=== PATIENT | female | born 1955 | race Caucasian/White ===

== ENCOUNTER 2020-07-20 10:24 | Emergency (ER) | payer BC, SELFPAY ==
--- NOTE | ~2020-07-20 | XR_ITS ---
EXAMINATION: XR shoulder LT min 2V EXAM DATE: 07/20/2020 12:56 INDICATION: No known recent injury provided at this time. Pain of the left shoulder. TECHNIQUE: The following left shoulder projections obtained: frontal projection with internal rotatio n, frontal projection with external rotation, Grashey, and scapular Y view (4+ views). There is no p rior study for comparison. FINDINGS: No evidence of left shoulder rotator cuff calcific tendinosis. There is mild glenohumer al and acromioclavicular primary osteoarthritis. There are no acute fractures or dislocations identif ied. There is no subcutaneous gas. The soft tissue is unremarkable. There are no radiopaque forei gn bodies. IMPRESSION: Mild left shoulder osteoarthritis. Reviewed, dictated and finalized at location B. NCE INSTRUCTOR
[2020-07-20 10:56] VITALS: BP 192/91; PULSE 84; RESP 16; TEMP 36.5; O2SAT 99
[2020-07-20] MEDS: KETOROLAC (*BKC) 60 MG/2 ML VIAL 30 MG IM (13:05)
--- NOTE | 2020-07-20 13:36 | ED.GENADULT ---
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 and believes that it may be what exacerbated the injury and pain pain radiates down the left arm denies other complaints or injuries has not taken anything for her symptoms presents in no distress pain is worse with lifting the shoulder above the level of the neck and with movement of the neck Related Data Allergies Allergy/AdvReac Type Severity Reaction Status Date / Time No Known Allergies Allergy Verified 05/14/13 09:13 Review of Systems Review of Systems: All systems reviewed & are unremarkable except as noted in HPI and below PMFSH Family History Family History (Updated 01/22/14 @ 07:13 by DOCTOR UNKNOWN) Mother Cerebrovascular accident Father Patient's father is Social History Social History Second hand tobacco smoke exposure: No Smoking end date: 05/28/94 Alcohol intake: current Exam Narrative: Exam Narrative: GENERAL: Well-appearing, well-nourished, and in no acute distress. HEAD: Normocephalic, atraumatic. EYES: PERRLA and EOMI. ENT: Nares clear, no rhinorrhea or epistaxis. Mucous membranes moist. NECK: Supple. No adenopathy or masses. CHEST: Clear to auscultation. No respiratory distress. No wheezes rales or rhonchi HEART: Regular rate and rhythm. No murmur heard. EXTREMITIES: Normal range of motion. No edema. Tenderness of the left trapezius musculature and rotator cuff musculature no other deformities or tenderness to palpation noted SKIN: Warm, dry, no rash. NEURO: No focal deficits. Alert and oriented x3. Neurovascularly intact. Cranial nerves II through XII grossly intact. Capillary refill less than 2 seconds PSYCH: Normal mood and affect. Course Course Emergency Course: Patient evaluated in the emergency department for shoulder pain will be discharged home at this time given primary care referral managed with medications and is felt appropriate for outpatient reevaluation Vital Signs Vital signs: Vital Signs Temperature 97.7 F 02/23/21 10:56 Pulse Rate 84 07/20/20 10:56 Respiratory Rate 16 07/20/20 10:56 Blood Pressure 192/91 H 07/20/20 10:56 Pulse Oximetry 99 07/20/20 10:56 Temperature 97.7 F 07/20/20 10:56 Pulse Rate 84 07/20/20 10:56 Respiratory Rate 16 07/20/20 10:56 Blood Pressure 192/91 H 07/20/20 10:56 Pulse Oximetry 99 07/20/20 10:56 Medical Decision Making MDM Narrative Medical decision making narrative: Patients injury or pain is consistent with musculoskeletal etiology. No signs of neurological or vascular compromise on exam. Compartments and tisues are soft without signs of compartment syndrome. Pain is felt appropriate for further evaluation on an outpatient basis. Vital Signs Vital Signs: Vital Signs Temperature 97.7 F 07/20/20 10:56 Pulse Rate 84 07/20/20 10:56 Respiratory Rate 16 07/20/20 10:56 Blood Pressure 192/91 H 07/20/20 10:56 Pulse Oximetry 99 07/20/20 10:56 Temperature 97.7 F 07/20/20 10:56 Pulse Rate 84 07/20/20 10:56 Respiratory Rate 16 07/20/20 10:56 Blood Pressure 192/91 H 07/20/20 10:56 Pulse Oximetry 99 07/20/20 10:56 Discharge Plan Discharge Clinical Impression: Acute pain of left shoulder Patient Disposition: Home, Self-Care Condition: Stable Instructions: Antibiotic Form, Arthralgia (ED) Additional Instructions: Follow up with your primary care doctor in 5-7 days for re-evaluation. Go to ER for worsening pain, vision changes, na
== END 2020-07-20 14:18 | disposition home or self-care (01) ==
PROVIDERS: Emergency Provider Emergency Medicine
DX: M25.512 Pain in left shoulder (principal)
CPT/HCPCS: 73030; 96372; 99283; J1885

== ENCOUNTER 2020-08-12 12:38 | Inpatient (IN) | payer BC, SELFPAY ==
[2020-08-12] VITALS (9 sets, daily range): BP systolic 149–183; BP diastolic 74–100; PULSE 74–87; RESP 15–25; TEMP 35.9–36.7; O2SAT 95–100; BMI 29.4
--- NOTE | ~2020-08-12 | CT_ITS ---
EXAMINATION: CT brain [facility] EXAM DATE: 08/12/2020 13:07 INDICATION: Speech impairment. Stroke. TECHNIQUE: Spiral CT of the head was performed without contrast. Axial, coronal and sagittal images were reviewed. The dose-length product (DLP) for this examination was 605.33 mGy-cm. The exposure w as tailored according to patient size, and iterative reconstruction (ASIR) was used as additional dos e reduction technique. There is no prior study for comparison. FINDINGS: There is no acute intraparenchymal hemorrhage. No evidence of intraparenchymal brain mass lesion. There is about 1 cm right parietal lobe hypodensity which could be an acute or subacute infar ction. There are scattered old small bilateral frontoparietal lobe infarctions There is mild to mode rate periventricular and subcortical hypodensity, nonspecific but probably related to small vessel is chemic disease. There is mild prominence of the sulci and ventricles related to cerebral atrophy. There is intracranial carotid arteriosclerosis. There are no extra-axial collections. There is no mass effect or midline shift. The orbits are unremarkable. Soft tissue is unremarkable. The visual ized sinuses and mastoid air cells are well aerated. IMPRESSION: 1. Small right parietal lobe infarction, could be acute or subacute. 2. Multiple scattered old small cortical infarctions. 3. Chronic age related findings. Reviewed, dictated and finalized at location A.
--- NOTE | ~2020-08-12 | CT_ITS ---
EXAMINATION: CTA brain carotid DATE: 08/12/2020 14:15 INDICATION: Cerebrovascular accident. TECHNIQUE: Computed tomographic angiography (CTA) of the head was performed with 100 mL Omnipaque-350 intravenous contrast. CTA of the neck was performed with intravenous contrast. Automated exposure co ntrol and iterative reconstruction technique were employed. The dose-length product was 922.96 mGy-cm . Maximum intensity projection and volume rendered 3D-reconstructions were created by the [employer] t on a separate workstation. COMPARISON: Head CT 08/12/2020 FINDINGS: HEAD CTA: There are infarcts in right parietal occipital region. There are old infarcts in the bilate ral frontal and parietal lobes. There is no intracranial hemorrhage or abnormal mass lesion. The vent ricles are normal in size. The orbits are normal. The paranasal sinuses are clear. The mastoid air ce lls are normal. The vertebral arteries are codominant. There is no significant stenosis of basilar ar clyde or the posterior cerebral arteries. There is moderate stenosis of the supraclinoid intracranial internal carotid arteries. There is total occlusion of cervical left internal carotid artery with rec onstitution in the petrous portion. There is no significant stenosis of the anterior or middle cerebr al arteries. Anterior communicating artery is normal. There is no aneurysm. The posterior communicati ng arteries are normal. NECK CTA: There is mild scarring at the lung apices. There is mild emphysema. There are no pathologic ally enlarged lymph nodes. There is plaque in proximal right internal carotid artery. There is 69% st enosis of the proximal right internal carotid artery relative to normal distal artery lumen diameter (NASCET criteria). There is total occlusion of cervical left internal carotid artery. There is mild s tenosis of the vertebral arteries. There is hypolordosis of cervical spine. Vertebral body heights ar e normal. There is mildly decreased disc height at C4-C5 and C5-C6. The following disc levels are spe cifically discussed: C2-C3: There is no uncovertebral joint osteoarthritis. There is moderate bilateral facet joint osteoa rthritis. There is no neural foraminal stenosis. There is no central canal stenosis. C3-C4: There is mild right uncovertebral joint osteoarthritis. There is no facet joint osteoarthritis . There is no neural foraminal stenosis. There is no central canal stenosis. C4-C5: There is mild bilateral uncovertebral joint osteoarthritis. There is mild left facet joint ost eoarthritis. There is mild left neural foraminal stenosis. There is mild central canal stenosis. C5-C6: There is mild bilateral uncovertebral joint osteoarthritis. There is no facet joint osteoarthr itis. There is mild bilateral neural foraminal stenosis. There is mild central canal stenosis. C6-C7: There is mild bilateral uncovertebral joint osteoarthritis. There is mild right facet joint os teoarthritis. There is no neural foraminal stenosis. There is no central canal stenosis. C7-T1: There is no uncovertebral joint osteoarthritis. There is mild bilateral facet joint osteoarthr itis. There is no neural foraminal stenosis. There is no central canal stenosis. IMPRESSION: 1. Age-indeterminant infarcts in right parietal occipital region. 2. Old infarcts in the bilateral frontal and parietal lobes. 3. 69% stenosis of the proximal right internal carotid artery relative to normal distal artery lumen diameter (NASCET criteria). 4. 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 5. Mild cervical spondylosis. Reviewed, dictated and finalized at location A.
--- NOTE | ~2020-08-12 | MR_ITS ---
EXAMINATION: MR brain/brain stem wo/w con EXAM DATE: 08/13/2020 09:01 INDICATION: Stroke. Abnormal head CT. TECHNIQUE: Magnetic resonance imaging (MRI) of the brain/brain stem obtained without contrast. Sagit nicola T1, axial diffusion, gradient echo (T2*), T1, T2, FLAIR sequences obtained. Patient was then inj ected with 15 cc intravenous Multihance contrast. Axial and coronal postcontrast T1 weighted sequence s obtained. Correlation is made to head CT, brain CTA from 08/12/2020. FINDINGS: There is small acute right parieto-occipital lobe infarction as seen on CT. There are multi ple other scattered punctate bilateral frontal and parietal lobe infarctions which could be varying a ges from acute to subacute. Punctate focus of enhancement in the posterior aspect right frontal lobe probably subacute punctate infarction. No other areas of abnormal enhancement. Recommend considering cardiac embolic source. There are multiple old small bilateral frontoparietal lobe infarctions. There is moderate microangiop athy and mild cerebral atrophy. There is abnormal signal intensity in the left internal carotid arter y, occluded extracranially but with reconstitution along the parasellar segment as seen on yesterday' s CT. There is no acute intracranial hemorrhage, brain mass, extra-axial collection or obstructive hy drocephalus. IMPRESSION: 1. Scattered small bilateral cortical infarctions ranging in age from acute to chronic. Recommend co nsidering cardiac embolic source. 2. Age-related intracranial findings. Reviewed, dictated and finalized at location A. IMPRESSION: 1. Scattered small bilateral cortical infarctions ranging in age from acute to chronic. Recommend considering cardiac embolic source. 2. Age-related intracranial findings.
--- NOTE | ~2020-08-12 | MR_ITS ---
EXAMINATION: MR cervical spine wo con EXAM DATE: 08/13/2020 09:01 INDICATION: Bilateral upper extremity weakness bilateral upper extremity weakness. TECHNIQUE: Multi-sequential, multiplanar MR images of the cervical spine were obtained without contra st. Axial T2, axial T2 MERGE sequence. Sagittal T1, T2, T2 fat saturation images also obtained. Th ere is no prior study for comparison. FINDINGS: The spinal cord signal intensity and intrinsic morphology is normal. Cervicomedullary junc tion is normal in appearance. The vertebral bodies are aligned in the AP dimension. Vertebral body an d disc heights are well-maintained. There are no suspicious marrow signal abnormalities. Paraspinal s oft tissue is unremarkable. Level by level evaluation: C2-C3: Disc does not extend beyond the endplate margin. Uncovertebral joint arthropathy: None. Facet joint arthropathy: Mild to moderate bilateral, right greater than left. Neural foraminal stenosis: No stenosis. Central canal stenosis: No stenosis. C3-C4: There is a minimal diffuse disc bulge asymmetric to the right Uncovertebral joint arthropathy: Mild right. Facet joint arthropathy: Moderate bilateral. Neural foraminal stenosis: Mild right. Central canal stenosis: No stenosis. C4-C5: There is a mild diffuse disc bulge. Uncovertebral joint arthropathy: Mild bilateral. Facet joint arthropathy: Moderate bilateral. Neural foraminal stenosis: Mild to moderate left, mild right. Central canal stenosis: Mild. C5-C6: There is a mild diffuse disc bulge. Uncovertebral joint arthropathy: Mild to moderate left, mild right. Facet joint arthropathy: Moderate. Neural foraminal stenosis: Moderate left, mild to moderate right. Central canal stenosis: Mild. C6-C7: There is a mild diffuse disc bulge. Uncovertebral joint arthropathy: Mild to moderate left, mild right. Facet joint arthropathy: Mild to moderate bilateral. Neural foraminal stenosis: Mild to moderate bilateral. Central canal stenosis: Mild. C7-T1: Disc does not extend beyond the endplate margin. Uncovertebral joint arthropathy: Mild left. Facet joint arthropathy: Mild bilateral. Neural foraminal stenosis: No stenosis. Central canal stenosis: No stenosis. IMPRESSION: 1. Mild to moderate cervical spondylosis. Reviewed, dictated and finalized at location A.
--- NOTE | ~2020-08-12 | XR_ITS ---
EXAMINATION: XR chest 1V DATE: 08/12/2020 13:11 INDICATION: Slurred speech. Cerebrovascular accident. TECHNIQUE: A single frontal view of the chest was obtained. COMPARISON: Chest 2 views 05/03/2012 FINDINGS: A calcified right lung nodule and calcified right hilar and mediastinal lymph nodes are con sistent with old granulomatous disease. There is mild scarring at the lung apices. No pleural effusio n or pneumothorax. The heart size is normal. Breast implants are noted. IMPRESSION: 1. Mild scarring at the lung apices. Reviewed, dictated and finalized at location A.
--- NOTE | 2020-08-12 12:47 | ECG_ITS ---
Measurements Intervals [employer] Rate: 83 P: 43 NV: 170 QRS: 3 QRSD: 93 T: 24 QT: 355 QTc: 418 Interpretive Statements SINUS RHYTHM INCOMPLETE RIGHT BUNDLE BRANCH BLOCK CONSIDER INFERIOR INFARCT, AGE INDETERMINATE BASELINE ARTIFACT- II, III, AVL, AVF ABNORMAL ECG Electronically Signed On 08-12-2020 13:02:25 CDT by Eduin Perales D.O.
--- NOTE | 2020-08-12 12:50 | ED.NEUROSD ---
HPI - Neuro Symptoms/Deficit General Chief Complaint: Neuro Symptoms/Deficit Stated Complaint: slurring speech, right arm problems Time Seen by Provider: 08/12/20 12:43 Source: patient and family Mode of arrival: ambulatory Limitations: no limitations History of Present Illness HPI Narrative: Patient is 65 years old white female presents with slurred speech started 4 to 5 days ago, weakness and numbness of the right upper extremity for months, weakness and numbness of the left upper extremity mainly hands in the last few days. Patient reports inability to pull her pants up or to manage holding stuff by hands. Mainly on the left side. Patient reports having 2 falls in the last 2 weeks because of loss of balance. Related Data Allergies Allergy/AdvReac Type Severity Reaction Status Date / Time No Known Allergies Allergy Verified 08/12/20 12:46 Review of Systems Review of Systems: Narrative: CONSTITUTIONAL: Denies fever, chills, or sweats. EYES: Denies visual changes, redness, or discharge. ENT: Denies rhinorrhea, congestion, sore throat, or otalgia. CARDIOVASCULAR: Denies chest pain, palpitations, or edema. RESPIRATORY: Denies cough or dyspnea. GASTROINTESTINAL: Denies abdominal pain, nausea, vomiting, or diarrhea. GENITOURINARY: Denies dysuria or hematuria. SKIN: Denies rash or itching. MUSCULOSKELETAL: Denies back pain, joint pain, or myalgia. NEUROLOGIC: Denies headache, numbness, or weakness. PSYCHIATRIC: Denies anxiety or depression. PMFSH Family History Family History Mother Cerebrovascular accident Father Patient's father is Sibling Throat cancer Sibling Liver disease Social History Social History Smoking packs per day: 1 Smoking cigarettes per day: 20.0 Smoking status: Current every day smoker Second hand tobacco smoke exposure: No Smoking end date: 05/28/94 Alcohol intake: current Exam Narrative: Exam Narrative: General appearance: Well-developed, well-nourished Skin: Normal color Head: Normocephalic, nontraumatic Eyes: Clear conjunctiva ENT: Oropharynx normal, ears normal, nose normal Neck: Supple, nontender Chest and respiratory: Airway patent, no respiratory distress, no accessory muscle use Heart: Regular rate/rhythm Abdomen: Soft, nontender, no organomegaly, quiet bowel sounds Vascular: Normal peripheral pulses, normal capillary refill. Musculoskeletal: Normal range of motion, nontender back Neurologic: Alert and oriented ?3, weakness of the upper extremity bilaterally Course Course Emergency Course: Stable Consultations Consultation #1: Dr. Arnold Date: 08/12/20 Time: 13:56 Vital Signs Vital signs: Vital Signs Temperature 36.6 C 08/12/20 12:41 Pulse Rate 87 08/12/20 12:41 Respiratory Rate 25 H 08/12/20 12:41 Blood Pressure 183/80 H 08/12/20 12:41 Pulse Oximetry 95 08/12/20 12:41 Temperature 36.6 C 08/12/20 12:41 Pulse Rate 81 08/12/20 13:22 Respiratory Rate 15 08/12/20 13:22 Blood Pressure 155/99 H 08/12/20 13:22 Pulse Oximetry 99 08/12/20 13:22 MDM - Neuro Symptoms/Deficit MDM Narrative Medical decision making narrative: Patient presents with weakness of the upper extremities mainly hands for months, patient is poor historian. Patient developed slurred speech in the last 4 to 5 days. CVA is my concern. Labs, chest x-ray, CT head and IV access ordered. Further plan to follow Differential Diagnosis Differential diagnosis: Likely carpal tunnel syndrome, peripheral neuropathy and cerebrovascular accident Lab Data Result diagrams:
[2020-08-12 12:53] LABS: Glucose Point of Care 109 (65-105)
[2020-08-12 12:57] LABS: Basophils Absolute Auto 0.1 K/mm3 (0.0-0.1); Basophils Percent Auto 0.8 % (0.2-1.2); Eosinophils Absolute Auto 0.2 K/mm3 (0-0.3); Eosinophils Percent Auto 2.1 % (0-4.4); Hematocrit 45.4 % (37.0-47.0); Hemoglobin 15.5 g/dL (12.0-15.0); Immature Granulocyte Absolute 0.03 K/mm3 (0.00-0.031); Immature Granulocyte Percent A 0.3 % (0-0.5); Lymphocytes Absolute Auto 2.81 K/mm3 (0.9-3.2); Lymphocytes Percent Auto 32.2 % (18.3-44.2); Mean Corpuscular HGB Conc 34.1 g/dl (32-36); Mean Corpuscular Hemoglobin 31.5 pg (26-34); Mean Corpuscular Volume 92.3 fl (80-100); Mean Platelet Volume 9.9 fl (7.4-10.4); Monocytes Absolute Auto 0.7 K/mm3 (0.1-0.6); Monocytes Percent Auto 8.5 % (2.6-8.5); Neutrophils Absolute Auto 4.9 K/mm3 (1.3-6.7); Neutrophils Percent Auto 56.1 % (45.5-73.1); Platelet Count Result 323 k/mm3 (150-375); Red Blood Count 4.92 M/mm3 (4.2-5.4); Red Cell Distribution Width 13.2 % (11.5-14.5); White Blood Count 8.7 K/mm3 (4.5-10.0)
[2020-08-12 13:07] LABS: INR 0.8; Prothrombin Time 11.9 Seconds (11.1-14.7)
[2020-08-12 13:11] LABS: Alanine Aminotransferase 31 U/L (4-35); Albumin Level 4.4 g/dL (3.5-5.1); Alkaline Phosphatase 120 U/L (38-126); Anion Gap 8 mmol/L (8-16); Aspartate Amino Transferase 34 U/L (14-36); Bilirubin,Total 0.4 mg/dL (0.2-1.3); Blood Urea Nitrogen 7 mg/dL (7-17); Calcium 9.4 mg/dL (8.4-10.2); Carbon Dioxide 22 mmol/L (22-30); Chloride 109 mmol/L (98-107); Estimated CRCL calculation 104 ml/min; Estimated Glomerular Filt Rate > 60; Glucose 111 mg/dL (65-105); Sodium 139 mmol/L (137-145)
[2020-08-12 13:25] LABS: Add Urine Microscopic? NO; Appearance Urine Clear (Clear); Bilirubin Urine Negative (Negative); Blood Urine Negative (Negative); Color Urine Yellow (Yellow); Glucose Urine UA Negative (Negative); Ketones Urine Negative (Negative); Leukocyte Esterase Ur Negative LEU/UL (Negative); Nitrate Urine Negative (Negative); Protein Urine Negative (Negative); Specific Grav Ur 1.006 (1.001-1.035); Urobilinogen Urine Negative mg/dL (<2.0)
[2020-08-12] MEDS: ASPIRIN 81 MG CHEWABLE TABLET 324 MG PO (14:21)
--- NOTE | 2020-08-12 15:30 | PM.IMHP ---
H&P: HPI History of Present Illness Date/Time: 08/12/20 15:30 Chief Complaint: Slurred speech, arm weakness. Narrative: This is a right handed 65-year-old female smoker with hypertension who presented to the emergency department earlier today from home for evaluation of slurred speech and arm weakness. Several weeks ago she awoke with left shoulder and neck pain for which she was seen in the emergency department on 07/20/2020. 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 Imaging reportedly showed findings of arthritis and she was referred to Dr. Pressley (orthopedics) for further evaluation. She was also referred to Dr. Munoz (primary care) to establish care as she had not seen a doctor for over 10 years. She was seen by her in follow-up on 08/05/2020 and at that time it was documented that the patient was reporting numbness down her left arm with the inability to raise her left arm or turn her left wrist. She was given a prescription for meloxicam which seems to have helped with her left shoulder discomfort though she still is unable to lift her left arm very far and is having dexterity issues in her fingers. She continues to have paresthesias in the left arm as well. About 4 or 5 days ago, her right arm began to feel numb and tingly and as the day progressed the right arm and hand became weak as well. Apparently she has had some mild slurred speech since that time as well. She decided to come in today for evaluation as she is now having difficulties performing her usual tasks due to this weakness, to the point where she could not even pull up her own pants today without extreme difficulties. Also she reports having a fall several days ago due to loss of balance and ?my legs giving out.? She has not noticed lower extremity weakness however does have mild left leg weakness on exam. CT of the brain today showed several old infarctions and a probable subacute right parietal lobe infarction and she is being admitted in this setting. Her blood pressure has been uncontrolled for quite some time and she does monitor it at home a with average readings of 180/110. No known history of dyslipidemia or carotid artery disease (left cervical ICA was totally occluded and right ICA had 69% stenosis on CTA of the head and neck today). She denies acute auditory and visual changes however reports that about 3 years ago ?I went completely blind in my right eye? for approximately 3 to 4 days. No recent auditory visual changes, specifically denying amaurosis fugax. She denies vertigo. No palpitations or history of cardiac dysrhythmia. She reports mild slurred speech. No dysphagia. No facial asymmetry. No recent injuries or history of neck injury. Review of Systems Review of Systems: Narrative: Twelve systems were reviewed with pertinent positives and negatives as per HPI. She denies fever, chills, and sweats. No headache. No recent cold or flu symptoms. She denies sick contacts. No known exposure to those positive for COVID-19. No history of cardiac dysrhythmia. She denies palpitations, fluttering, and racing heart. No history of COPD. She denies cough and shortness of breath. No nausea, vomiting, or diarrhea. Denies dysuria. 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 No history of alcohol withdrawal signs or symptoms. She has chronic low back pain and was previously seeing pain management, getting injections, and was taking hydrocodone. She has been off all narcotics since April 2020 as her doctor apparently moved away from the area. She continues to have frequent, daily low back pain. Except as documented, all other systems were reviewed and are negative. [facility] Past Medical History Medical History (Updated 08/12/20 @ 17:15 by Tracie Hansen,
--- NOTE | 2020-08-12 15:35 | ADMGEN ---
This patient, Alycia Gomez, was admitted to Medical Room 254-01. Patient/family oriented to hospital policies and general routines including ID bracelet, bed and alarms, visiting hours, pain management, procedures, bathroom and other care routines, personal items, smoking policy, room service/diet, and visiting hours. Information on how to activate the Rapid Response Team has been discussed. Patient/Family are encouraged to report perceived risks to care and to ask questions if they do not understand what they are told or what they should do.
[2020-08-12] MEDS: hydroCHLOROthiazide 12.5 MG CAPSULE PO (16:22)
[2020-08-12] MEDS: METOPROLOL TARTRATE 50 MG TAB PO (18:18)
[2020-08-13] VITALS (11 sets, daily range): BP systolic 141–151; BP diastolic 69–79; PULSE 63–107; RESP 16–20; TEMP 36.1–36.6; O2SAT 98–99
--- NOTE | 2020-08-13 | ECHO_ITS ---
Patient Info Name: Alycia Gomez Age: 65 years : 1955 Gender: Female Ht: 65 in Wt: 193 lbs BSA: 2.04 m2 HR: 67 bpm BP: 146 / 73 mmHg Technical Quality: Fair Exam Date: 08/13/2020 11:20 AM Exam Location: [facility] Pulmonary Exam Room: [facility] Patient Status: Inpatient Admit Date: 08/12/2020 Staff Ordering Physician: Tracie Hansen PA-C Costing Manager: Kori Harrell RDCS Attending Provider: Jossie Yang PA-C Exam Type: CA echo dop bubble study w con Study Info Indications - R/O CSE - CVA Complete two-dimentional, color flow and Doppler transthoracic echocardiogram is performed with agitated saline and with contrast to opacify the left ventricle and to improve the delineation of the left ventricle endocardial borders. Contrast/Agitated Saline Contrast/Ag. Saline: Agitated Saline Amount: 20.00 ml Administered By: Latonia Sena RN IV Access Condition: evidence of infiltration New IV Access: Right Summary 1. Left ventricular chamber dimension is normal. 2. Definity contrast administered improved wall motion interpretation. 3. Left ventricular systolic function is normal, estimated at 60-65%. 4. There is mildly increased left ventricular wall thickness. 5. The left ventricular diastolic function is grade I diastolic dysfunction. 6. E/e' 11 is mildly elevated. 7. There is mild aortic valve sclerosis. 8. There is trace tricuspid valve regurgitation. 9. No pulmonary hypertension, estimated pulmonary arterial systolic pressure is 17 mmHg. Left Ventricle E/e' 11 is mildly elevated. Definity contrast administered improved wall motion interpretation. Left ventricular chamber dimension is normal. Left ventricular systolic function is normal, estimated at 60-65%. There is mildly increased left ventricular wall thickness. The left ventricular diastolic function is grade I diastolic dysfunction. Right Ventricle Right ventricular chamber dimension is normal. Right ventricular systolic function is normal. Left Atria Left atrial chamber dimension is normal. Right Atria Right atrial chamber dimension is normal. Atrial Septum Agitated saline injection with and without valsalva maneuver opacified right side cardiac chambers without shunt to left side cardiac chambers. Intact interatrial septum visualized by agitated saline imaging. Aortic Valve The aortic valve is trileaflet. There is mild aortic valve sclerosis. There is no aortic valve stenosis. There is no aortic valve regurgitation. Pulmonic Valve There is no pulmonic regurgitation. Mitral Valve There is no mitral valve stenosis. There is no mitral valve regurgitation. Tricuspid Valve There is trace tricuspid valve regurgitation. No pulmonary hypertension, estimated pulmonary arterial systolic pressure is 17 mmHg. Pericardium/Pleural There is no pericardial effusion. Inferior Vena Cava Normal inferior vena cava with >50% collapse upon inspiration consistent with normal right atrial pressure, 5 mmHg. Aorta The aortic root size at the sinus of Valsalva is normal. Left Ventricular Outflow Tract Name Value Normal LVOT 2D LVOT Diameter 2.0
[2020-08-13 05:36] LABS: Hematocrit 46.1 % (37.0-47.0); Hemoglobin 15.3 g/dL (12.0-15.0); Mean Corpuscular HGB Conc 33.2 g/dl (32-36); Mean Corpuscular Hemoglobin 30.5 pg (26-34); Mean Corpuscular Volume 91.8 fl (80-100); Mean Platelet Volume 9.9 fl (7.4-10.4); Platelet Count Result 324 k/mm3 (150-375); Red Blood Count 5.02 M/mm3 (4.2-5.4); Red Cell Distribution Width 13.2 % (11.5-14.5); White Blood Count 7.9 K/mm3 (4.5-10.0)
[2020-08-13 05:58] LABS: Anion Gap 7 mmol/L (8-16); Blood Urea Nitrogen 8 mg/dL (7-17); Calcium 9.4 mg/dL (8.4-10.2); Carbon Dioxide 25 mmol/L (22-30); Chloride 107 mmol/L (98-107); Cholesterol 272 mg/dL (0-200); Estimated CRCL calculation 99 ml/min; Estimated Glomerular Filt Rate > 60; Glucose 104 mg/dL (65-105); HDL Direct 59 mg/dL; Potassium 3.5 mmol/L (3.4-5.0); Sodium 139 mmol/L (137-145); Triglycerides 101 mg/dL (<150)
[2020-08-13 06:10] LABS: LDL Cholesterol Direct 174 mg/dL
[2020-08-13] MEDS: METOPROLOL TARTRATE 50 MG TAB PO ×2 (06:14→17:48)
--- NOTE | 2020-08-13 08:15 | PC.NURSE ---
To Radiology per wheelchair for MRI
--- NOTE | 2020-08-13 09:07 | PC.NURSE ---
Pt returned to floor after having MRI
[2020-08-13] MEDS: ATORVASTATIN 40 MG TABLET PO (09:51)
[2020-08-13] MEDS: hydroCHLOROthiazide 12.5 MG CAPSULE PO (09:52)
[2020-08-13] MEDS: ASPIRIN 81 MG CHEWABLE TABLET PO (09:53)
[2020-08-13] MEDS: ENOXAPARIN 40 MG/0.4 ML SYRINGE SUB-Q (10:28)
[2020-08-13] MEDS: PERFLUTREN LIPID MICROSPHERES 1.5 ML VIAL DILUTED TO 10 ML TOTAL VOLUME IV PUSH (12:26)
--- NOTE | 2020-08-13 13:47 | WPDNEURCNPN ---
Consult date: 08/19/20 Time Seen: 13:45 HPI: Alycia Gomez is a 65 year old female 65 years old lady has been admitted to the [facility] through the emergency room with the complaint of difficulties in speech along with the arm weakness. Reportedly she woke up with left shoulder and neck pain. 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 she was referred to Dr. nelson for further evaluation in addition to dr brown as a primary care physician as she has not seen a doctor for 10 years.when she followed up on August 05, 2020 she complained of numbness down her left upper extremity and inability to raise the left upper extremity or turn her left wrist she received anti inflammatory medication but she continued to have paresthesia in the left upper extremity and about 4 to 5 days ago her right upper extremity became numb and tingled along with the slurred speech. At this time she decided to come to the hospital. she has not noted any weakness in the lower extremities but she did manifest some weakness of the left lower extremity on the exam by the physician in the emergency room. CT scan of the brain revealed old infarction involving the right parietal lobe her blood pressure was 180/110 a left cervical ICA was totally occluded and right ICA was 60.9% stenosis on CT of the head and neck on the day of visit to the emergency room she gave no history of any other neurological symptomatology. pertinent investigation up until now revealed her echocardiogram with no significant abnormalities except mild aortic valve sclerosis MRI of the brain with scattered small bilateral cortical infarctions ranging from acute to chronic and MRI of cervical spine with moderate cervical spondylosis. Routine blood studies unremarkable except elevated cholesterol of 272 with LDL of 174 and HDL of 59 Review of Systems Review of Systems: All systems reviewed & are unremarkable except as noted in HPI and below PMFSH Past Medical History Medical History Carotid artery disease 69% right internal carotid artery stenosis on CTA of the head and neck dated 08/12/2020. 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 Chronic back pain Daily consumption of alcohol Hypertension Tobacco dependence Surgical History Surgical History History of breast augmentation History of tubal ligation Family History Family History Mother Cerebrovascular accident Father Patient's father is Sibling Throat cancer Sibling Liver disease Social History Social History (Updated 08/12/20 @ 17:16 by Tracie Hansen PA-C) Social History: Surrogate decision maker: Marinely sister Clarke. Code status: Full code. Smoking packs per day: 1 Smoking cigarettes per day: 20.0 Smoking status: Current every day smoker Second hand tobacco smoke exposure: No Additional smoking assessment comments: Patient has smoked off and on since the age of 17. Alcohol intake: current Drinks per week: 42 Substance use: never Additional living arrangements comments: The patient lives in [place] with her mother. 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 Gender identity (if verbalized by the patient): Female Spiritual care concerns: No Meds Home Medications and Allergies Home Medications Medication Instructions Recorded Confirmed Type acetaminophen [Tylenol Arthritis 650 mg PO Q12H PRN #10 tablet 07/20/20 08/12/20 Rx Pain] meloxicam 15 mg tablet 15 mg PO DAILY #30 tablet 08/05/20 08/12/20 Rx metoprolol tartrate 50 mg tablet 50 mg PO Q12H #180 tablet 08/05/20 08/12/20 Rx c
--- NOTE | 2020-08-13 15:08 | PC.NURSE ---
On 08/13/20, the student, [ Marcus Ng], provided care and [facility] on [facility] patient. I have reviewed the student's documentation and agree with the findings.
[2020-08-13] MEDS: NICOTINE (*PBKC) 7 MG PATCH 1 PATCH TRANSDERM (15:41)
--- NOTE | 2020-08-13 16:39 | PM.DS ---
DS: Admitting Diagnosis Admitting Diagnosis Admitting Diagnosis: Left sided weakness DS: Discharge Diagnosis Discharge Diagnosis (1) Cerebrovascular accident: Code(s): I63.9 - Cerebral infarction, unspecified Status: Acute Assessment and Plan: Acute versus subacute (most likely due to time frame) small right parietal lobe infarction on today's CT with multiple, scattered old small cortical infarctions. CTA of the head and neck demonstrated total occlusion of the cervical left ICA and 69% stenosis of the proximal right ICA. MRI brain showed Scattered small bilateral cortical infarctions ranging in age from acute to chronic. Recommend considering cardiac embolic source. Age-related intracranial findings. Telemetry showed 1 episode a 2.2nd pause while she was sleeping around 1:00 a.m.. Patient was asymptomatic during this time. No acute arrhythmia and noted. Echocardiogram with bubble study showed 60-65%, mild LVH, diastolic grade 1, no pulmonary hypertension. Left and right atrium are normal dimension. Intact interatrial septum. Neurology evaluated the patient and recommended starting aspirin 81 mg daily as well as Plavix for 30 days. Plan is for her to follow-up with Dr. Arnold as an outpatient and she will need follow-up with a vascular surgeon which I explained to her as an outpatient. Explained her the importance of following up with vascular surgery. She understands. She was started on high-dose statin medication with elevated total cholesterol and LDL, LDL should be less than 70. She worked with PT OT and speech therapy and did fairly well. She will need to follow-up as an outpatient with PT, OT and speech therapy for further outpatient therapy after strokes. Patient's blood pressure is elevated so she was started on blood pressure medications, told her it is important to check her blood pressure twice daily and follow-up with her primary care provider. Told her elevated blood pressures can cause further strokes from carotid artery stenosis. Patient understands. Smoking cessation given for 3 minutes. (2) Carotid artery disease: Code(s): I77.9 - Disorder of arteries and arterioles, unspecified Status: Acute Assessment and Plan: CTA of the head and neck demonstrated total occlusion of the cervical left ICA and 69% stenosis of the proximal right ICA. Start high-intensity statin. Will need vascular referral from primary. (3) Hypertension: Code(s): I10 - Essential (primary) hypertension Status: Chronic Assessment and Plan: Blood pressures were reviewed and they are not controlled, as high as 183/80 since arrival. CVA is likely subacute given timing of symptoms, thus we will try to achieve better blood pressure control. Continue with metoprolol 50 milligrams q.12 hours, continue hydrochlorothiazide May very well need another antihypertensive added to her regimen when following up with her primary. (4) Weakness of both upper extremities: Code(s): R29.898 - Other symptoms and signs involving the musculoskeletal system Status: Acute Assessment and Plan: Suspected to be due to recent CVAs given time line and imaging. MRI cervical spine showed mild to moderate cervical spondylosis. Believe upper extremity weaknesses are due to CVAs. Will need occupational therapy, hand specialist in outpatient setting (5) Tobacco dependence: Code(s): F17.200 - Nicotine dependence, unspecified, uncomplicated Status: Acute Assessment and Plan: Smoking cessation given for 3 minutes. (6) Daily consumption of alcohol: Code(s): Z78.9 - Other specified health status Status: Chronic Assessment and Plan: Alcohol cessation given. DS: Summary Hospital Course Reason for hospitalization: Patient is a 65-year-old woman with no chronic medical conditions and had not seen a doctor in over 10 years, other than 08/05/[address] Sales
== END 2020-08-13 18:05 | disposition home or self-care (01) | DRG 65 ==
LOC: ANHED 13:57 → ANH2MED 15:21
PROVIDERS: Physician Assistant; Admitting Provider Family Medicine; Emergency Provider Emergency Medicine; PCP Family Medicine; Visit Provider Physician Assistant
DX: I63.9 Cerebral infarction, unspecified (principal); G83.0 Diplegia of upper limbs; R47.81 Slurred speech; R29.702 NIHSS score 2; I65.23 Occlusion and stenosis of bilateral carotid arteries; Z91.81 History of falling; I10 Essential (primary) hypertension; F17.200 Nicotine dependence, unspecified, uncomplicated; Z78.9 Other specified health status; E78.00 Pure hypercholesterolemia, unspecified
CPT/HCPCS: 36415; 51701; 70450; 70496; 70498; 70553; 71045; 72141; 80048; 80053; 80061; 81003; 82948; 83735; 85025; 85027; 85610; 85730; 92523; 93005; 96375; 97161; 97165; 99285; A9270; A9577; C8929; G0378; J1650; Q9957; Q9967

== ENCOUNTER 2021-10-07 10:10 | Outpatient (CLI) | payer MEDICARE, SELFPAY ==
[2021-10-07 10:39] LABS: Alanine Aminotransferase 26 U/L (6-35); Albumin Level 4.4 g/dL (3.5-5.1); Alkaline Phosphatase 111 U/L (38-126); Anion Gap 9 mmol/L (8-16); Aspartate Amino Transferase 32 U/L (14-36); Bilirubin,Total 0.2 mg/dL (0.2-1.3); Blood Urea Nitrogen 13 mg/dL (7-17); Calcium 9.1 mg/dL (8.4-10.2); Carbon Dioxide 24 mmol/L (22-30); Chloride 105 mmol/L (98-107); Cholesterol 204 mg/dL (0-200); Estimated Glomerular Filt Rate > 60; Glucose 104 mg/dL (65-110); HDL Direct 59 mg/dL; Potassium 4.2 mmol/L (3.4-5.0); Sodium 138 mmol/L (137-145); Triglycerides 88 mg/dL (<150)
[2021-10-07 10:50] LABS: LDL Cholesterol Direct 112 mg/dL
== END 2021-10-07 10:11 | disposition home or self-care (01) ==
PROVIDERS: PCP Family Medicine; Visit Provider Family Medicine
DX: E78.5 Hyperlipidemia, unspecified (principal); Z79.899 Other long term (current) drug therapy
CPT/HCPCS: 36415; 80053; 80061

== ENCOUNTER 2022-06-09 17:32 | Outpatient (CLI) | payer MEDICARE, SELFPAY ==
[2022-06-09 18:02] LABS: Alanine Aminotransferase 34 U/L (6-35); Albumin Level 4.7 g/dL (3.5-5.1); Alkaline Phosphatase 120 U/L (38-126); Anion Gap 9 mmol/L (8-16); Aspartate Amino Transferase 30 U/L (14-36); Bilirubin,Total 0.4 mg/dL (0.2-1.3); Blood Urea Nitrogen 9 mg/dL (7-17); Calcium 9.6 mg/dL (8.4-10.2); Carbon Dioxide 25 mmol/L (22-30); Chloride 100 mmol/L (98-107); Cholesterol 214 mg/dL (0-200); Estimated Glomerular Filt Rate > 60; Glucose 100 mg/dL (65-110); HDL Direct 65 mg/dL; Potassium 3.9 mmol/L (3.4-5.0); Sodium 134 mmol/L (137-145); Triglycerides 152 mg/dL (<150)
[2022-06-09 18:14] LABS: LDL Cholesterol Direct 104 mg/dL
[2022-06-09 18:39] LABS: Hemoglobin A1C 5.1 % (<5.7)
== END 2022-06-09 17:33 | disposition home or self-care (01) ==
PROVIDERS: PCP Family Medicine; Visit Provider Family Medicine
DX: E78.5 Hyperlipidemia, unspecified (principal); I10 Essential (primary) hypertension; R73.09 Other abnormal glucose; I63.9 Cerebral infarction, unspecified; E78.00 Pure hypercholesterolemia, unspecified
CPT/HCPCS: 36415; 80053; 80061; 83036

== ENCOUNTER 2023-05-12 12:09 | Outpatient (CLI) | payer MEDICARE, SELFPAY ==
[2023-05-12 13:13] LABS: Cholesterol 150 mg/dL (0-200); HDL Direct 51 mg/dL; Triglycerides 110 mg/dL (<150)
[2023-05-12 13:33] LABS: LDL Cholesterol Direct 70 mg/dL
== END 2023-05-12 12:10 | disposition home or self-care (01) ==
PROVIDERS: PCP Family Medicine
DX: E78.2 Mixed hyperlipidemia (principal)
CPT/HCPCS: 36415; 80061

== ENCOUNTER 2024-02-25 14:23 | Outpatient (CLI) | payer OTHER, SELFPAY ==
[2024-02-25 15:07] LABS: Hematocrit 38.9 % (37.0-47.0); Mean Corpuscular HGB Conc 30.8 g/dl (32-36); Mean Corpuscular Hemoglobin 26.5 pg (26-34); Mean Corpuscular Volume 85.9 fl (80-100); Mean Platelet Volume 10.3 fl (7.4-10.4); Platelet Count Result 380 k/mm3 (150-375); Red Blood Count 4.53 M/mm3 (4.2-5.4); Red Cell Distribution Width 16.3 % (11.5-14.5); White Blood Count 8.3 K/mm3 (4.5-10.0)
[2024-02-25 15:21] LABS: Alanine Aminotransferase 22 U/L (6-35); Albumin Level 4.5 g/dL (3.5-5.1); Alkaline Phosphatase 80 U/L (38-126); Anion Gap 7 mmol/L (4-12); Aspartate Amino Transferase 25 U/L (14-36); Bilirubin,Total 0.4 mg/dL (0.2-1.3); Blood Urea Nitrogen 7 mg/dL (7-17); Calcium 9.5 mg/dL (8.4-10.2); Carbon Dioxide 26 mmol/L (22-30); Chloride 106 mmol/L (98-107); Cholesterol 162 mg/dL (0-200); Estimated Glomerular Filt Rate > 60; Glucose 99 mg/dL (65-110); HDL Direct 64 mg/dL; Potassium 3.9 mmol/L (3.4-5.0); Sodium 139 mmol/L (137-145); Triglycerides 118 mg/dL (<150)
[2024-02-25 15:32] LABS: LDL Cholesterol Direct 73 mg/dL
[2024-02-25 15:50] LABS: Vitamin D 25 Hydroxy < 12.8 ng/mL
== END 2024-02-25 14:24 | disposition home or self-care (01) ==
PROVIDERS: PCP Family Medicine; Visit Provider Nurse Practitioner
DX: Z00.00 Encounter for general adult medical examination without abnormal findings (principal); I63.9 Cerebral infarction, unspecified; E78.5 Hyperlipidemia, unspecified; E55.9 Vitamin D deficiency, unspecified
CPT/HCPCS: 36415; 80053; 80061; 82306; 84443; 85027

== ENCOUNTER 2024-04-23 08:23 | Outpatient (CLI) | payer OTHER, SELFPAY ==
--- NOTE | ~2024-04-23 | CT_ITS ---
EXAMINATION:CT lung screening DATE: 04/23/2024 08:34 INDICATION: Personal history of nicotine dependence. Current smoker with 51 pack year history. TECHNIQUE: Computed tomography (CT) of the chest was performed without intravenous contrast. Automate d exposure control and iterative reconstruction technique were employed. The dose-length product (DLP ) was 106.05 mGy-cm. COMPARISON: None. FINDINGS: There is mild scarring at the lung apices. There is mild emphysema. Calcified right lung no dules and calcified right hilar lymph nodes are consistent with old granulomatous disease. There is a cluster of centrilobular nodules measuring up to 5 mm in left lower lobe, likely inflammation/infect ion. No pleural effusion. The heart size is normal. There are coronary artery calcifications. No paul cardial effusion. There are bilateral breast implants. There is moderate thoracic spondylosis. IMPRESSION: 1. Lung-RADS category 2: Benign appearance or behavior. Continue annual screening with noncontrast lo w-dose chest CT in 12 months. Reviewed, dictated and finalized at location A. [employer] IMPRESSION: 1. Lung-RADS category 2: Benign appearance or behavior. Continue annual screeni ng with noncontrast low-dose chest CT in 12 months.
== END 2024-04-23 08:24 | disposition home or self-care (01) ==
LOC: MICIMG 08:24
PROVIDERS: PCP Nurse Practitioner; Visit Provider Nurse Practitioner
DX: Z12.2 Encounter for screening for malignant neoplasm of respiratory organs (principal); Z87.891 Personal history of nicotine dependence
CPT/HCPCS: 71271

== ENCOUNTER 2024-09-19 09:11 | Outpatient (CLI) | payer OTHER, SELFPAY ==
--- OUTSIDE RECORDS SUMMARY | 2024-09-19 09:21 | XMS_ITS | Clinical Summary ---
Author Organization [facility] [address] Address [address] [place] [address] Care Team Providers Care Layout Technician Name Role Phone CrowmelchorAlisa ewing Primary Care Provider [phone] Marie Marcum MD Unavailable [phone] Allergies No known active allergies Medications aspirin 81 mg chewable tablet Take 1 tablet (81 mg total) by mouth daily 1 Active hydroCHLOROthi azide (MICROZIDE) 12.5 mg capsule Take 1 capsule (12.5 mg total) by mouth every morning 1 Active metoprolol tartrate (LOPRESSOR) 50 mg immediate release tablet Take 1 tablet (50 mg total) by mouth every 12 (twelve) hours 1 Active cyclobenzaprin e (FLEXERIL) 10 mg tablet as needed 1 Active cholecalcifero l (VITAMIN D-3) 50,000 unit capsule Take 1 capsule (50,000 Units total) by mouth once a week Active atorvastatin (LIPITOR) 80 mg tablet TAKE 1 TABLET BY MOUTH EVERY DAY 90 tablet 1 5 Active potassium chloride ER 10 mEq CR tablet TAKE 1 TABLET BY7 MOUTH DAILY 90 tablet 1 5 Active lisinopriL (PRINIVIL,ZEST RIL) 5 mg tablet TAKE 1 TABLET BY MOUTH DAILY 90 tablet 1 5 Active ezetimibe (ZETIA) 10 mg tablet TAKE 1 TABLET BY MOUTH DAILY 30 tablet 5 Active clopidogreL (PLAVIX) 75 mg tablet TAKE 1 TABLET BY MOUTH EVERY DAY 90 tablet 2 5 Active clopidogreL (PLAVIX) 75 mg tablet TAKE 1 TABLET BY MOUTH EVERY DAY 90 tablet 2 4 09/11/19 25 Discontinued Active Problems Problem Noted Date Diagnosed Date Occlusion of left carotid artery 09/03/2020 Assessment & Plan (05/11/2021 12:21 PM DIRECTOR OF SOFTWARE ENGINEERING): Left carotid artery is occluded. Assessment & Plan (02/09/2021 11:00 PM CDT): Recent carotid Doppler study showed total occlusion of the left carotid artery. High-grade stenosis in the right internal. Status post right carotid endarterectomy. Aspirin. Atorvastatin. Plavix. . Assessment & Plan (09/03/2020 8:46 AM CDT): Patient has occlusion of the left carotid artery. Tobacco abuse 09/01/2020 Assessment & Plan (11/14/2021 9:38 AM CDT): Patient had previously been a 1 pack per day smoker and had quit for about 4 months she said but now she is back to 4 cigarettes a day. I explained to her that smoking cessation is the best thing that she can do for the longevity of her cardiac and carotid stents. More than 3 minutes was spent discussing smoking cessation. She understands and says that she will try to quit again. Assessment & Plan (05/11/2021 12:21 PM DIRECTOR OF SOFTWARE ENGINEERING): She had quit smoking previously but since her mother she is back to smoking about half a pack a day. It was once again discussed with her that she needs to quit smoking and the overall benefits on her cardiovascular health. I explained to her with the stent in her carotid artery that continuing to smoke will most certainly cause stenosis in the stent and ultimately end up causing her to have to have another procedure done or possibly even another stroke. She says she understands that she needs to quit smoking and will try once again. Assessment & Plan (02/10/2021 11:25 AM CDT): She is back to smoking half pack daily and I told her to totally stop. Assessment & Plan (09/03/2020 8:45 AM CDT): She has a significant smoking history but did quit in July after her stroke. Assessment & Plan (09/01/2020 3:54 PM CDT): She quit smoking in July 2020 after a stroke. COPD (chronic obstructive pulmonary disease) 11/2020 Assessment & Plan (09/03/2020 8:45 AM CDT): Patient has quit smoking at this time and her COPD is controlled at this time. Assessment & Plan (09/01/2020 3:52 PM CDT): She has quit smoking. Rhonchi in the lungs bilaterally posteriorly. Right-sided extracranial carotid artery stenosis 09/01/2020 Assessment & Plan (12/08/2022 1:39 PM CDT): Status post right TCAR. Stent widely patent. Continue risk factor modification with ASA Plavix and good blood pressure control. Follow-up in 1 year with repeat duplex. Assessment & Plan (11/14/2021 9:38 AM CDT): Patient has right carotid artery stent is widely patent. She will follow up in 1 year with repeat carotid artery duplex. Assessment & Plan (05/11/2021 12:21 PM DIRECTOR OF SOFTWARE ENGINEERING): Patient has done well since her right-sided carotid artery stent placement. She has had no new TIA or stroke symptoms. She is going to continue her aspirin, Plavix and statin which along with blood pressure control and quitting smoking will be the best to keep her stent patent. I will have her follow up in 6 months with a carotid duplex. Assessment & Plan (02/10/2021 11:26 AM CDT): Status post right carotid endarterectomy by Dr. Marcum probably August 2020. Aggressive risk factor modification. Assessment & Plan (11/12/2020 4:19 PM CDT): Impression: Patient is status post internal carotid artery stent on 09/14/2020 and reports she is doing well since the procedure. Carotid ultrasound shows patent internal carotid artery. Plan: Patient to follow-up in 6 months with repeat carotid ultrasound. Assessment & Plan (09/30/2020 1:49 PM CDT): Patient is now status post right TCAR. She is doing well from the procedure. She will continue on her aspirin, Plavix and statin. I will have her follow up in 1 month with a carotid artery duplex. She is to call sooner if she has any questions or concerns. Assessment & Plan (09/03/2020 8:46 AM CDT): Patient has right carotid stenosis greater than 80%. Looking at the CT scan and the ultrasound she would be a good candidate for TCAR especially given her contralateral occlusion and her COPD. I discussed this procedure with her including the risks, benefits and alternatives which include but are not limited to: Bleeding, infection, damage to surrounding structures, occlusion of the stent, risk of stroke, risk of [place], risk of anesthesia and possible . She understands and is willing to proceed. Assessment & Plan (09/01/2020 3:51 PM CDT): Recent carotid Doppler study showed total occlusion of the left internal. High- grade stenosis in the right internal. Carotid endarterectomy is anticipated. Status post CVA 09/01/2020 Assessment & Plan (02/09/2021 11:01 PM CDT): Right parietal infarct. Total occlusion of the left internal. High-grade stenosis in the right internal. Echo at [facility] was unremarkable. No intracardiac shunt. No atrial fibrillation on the event monitor. No need for anticoagulation. Status post right carotid endarterectomy. Plavix. Aspirin. Atorvastatin. Assessment & Plan (09/01/2020 3:56 PM CDT): Right parietal infarct. Total occlusion of the left internal. High-grade stenosis in the right internal. The echo Doppler at [facility] showed normal ejection fraction, no significant valvular abnormality. No intracardiac shunt. His subsequent event monitor showed a no atrial fibrillation. A short run of SVT was seen which was asymptomatic. Aspirin. Plavix. Atorvastatin. No smoking. Exertional dyspnea 09/01/2020 Assessment & Plan (02/09/2021 10:57 PM CDT): Echo showed normal ejection fraction and no significant valvular abnormality. Lexiscan stress test 09/08/2020 was negative for ischemia. Assessment & Plan (09/01/2020 3:56 PM CDT): Recent echo showed normal ejection fraction and no significant valvular abnormality. The EKG shows no significant abnormality. Will set up a Lexiscan stress test to look for myocardial ischemia as the etiology of her exertional dyspnea. She will not be able to do a walking stress tests on account of her decreased exercise tolerance. HTN (hypertension) 08/30/2020 Assessment & Plan (12/08/2022 1:40 PM CDT): Stable continue hydrochlorothiazide 12.5 mg. Assessment & Plan (11/14/2021 9:39 AM CDT): Followed by her PCP and stripper and taper. I recommend she continue her hydrochlorothiazide, lisinopril and metoprolol. Assessment & Plan (05/11/2021 12:20 PM DIRECTOR OF SOFTWARE ENGINEERING): Chronic and stable. She is followed by her PCP and stripper and taper and controlled on her hydrochlorothiazide and Lopressor. It was also explained to her that blood pressure control is important to reduce any risk of restenoses of her carotid artery. Assessment & Plan (02/10/2021 11:24 AM CDT): Salt restriction. Hydrochlorothiazide. Lopressor. On 09/15/2020 potassium 3.3, BUN 0.4.. Oral potassium was added 10 mEq daily. Blood pressure 136/80. Assessment & Plan (09/03/2020 8:44 AM CDT): Followed by her PCP and stripper and taper possibly will need medication changes based on their exam. Assessment & Plan (09/01/2020 3:53 PM CDT): Salt restriction. Hydrochlorothiazide, Lopressor. Blood pressure 138/90 today. Will check the SMA 7. Will decide whether to add oral potassium. EKG today shows a normal sinus rhythm, incomplete right bundle branch block. Hyperlipemia 08/30/2020 Assessment & Plan (12/08/2022 1:39 PM CDT): Stable continue Lipitor 80 mg. Assessment & Plan (11/14/2021 9:39 AM CDT): Followed by her PCP. She says that she just had her Lipitor increased to 80 mg daily. I recommended she continue her Lipitor and if she starts having leg cramping to call her PCP. She will need to remain on a statin. Assessment & Plan (05/11/2021 12:19 PM DIRECTOR OF SOFTWARE ENGINEERING): Followed by her PCP and controlled on her atorvastatin. She is to continue to take her statin as this will help reduce any Saurabh stenosis of the carotid artery. Assessment & Plan (02/10/2021 11:24 AM CDT): Low-fat low-cholesterol diet. Atorvastatin. No recent lipid profile . Will track the 1 done a few days ago. Assessment & Plan (09/03/2020 8:44 AM CDT): Patient is currently on a statin. Assessment & Plan (09/01/2020 3:54 PM CDT): Low-fat low-cholesterol diet. Atorvastatin 40 mg bedtime daily. Recent LDL 174. Will follow-up. Target less than 70. Immunizations Immunization Administration Dates Next Due Pfizer SARS-CoV-2 Monovalent Vaccination (12+ Yrs) PURPLE 09/27/2020 Surgical History Surgery Date Site/Laterality Comments TUBAL LIGATION 05/28/1982 - 05/27/1983 Tubal AUGMENTATION MAMMOPLASTY 05/28/1979 - 05/27/1980 Breast Augmentation CAROTID STENT 09/14/2020 Right tcar Medical History Medical History Date Comments Hypertension Hypertension Family History Medical History Relation Name Comments Heart disease Father Heart disease; Cause of : Heart disease Other Mother triple bypass; Relation Name Status Comments Father (Age 52) Mother Social History Tobacco Use Types Packs/Day Years Used Date Smoking Tobacco: Some Days Tobacco Cessation:Ready to Q uit: Not Asked; Counseling Given: Not Answered Alcohol Use Standard Drinks/Week Comments Yes 0 (1 standard drink = 0.6 oz pur e alcohol) Comments Unknown Sex and Gender Information Value Date Recorded Sex Assigned at Not on file Legal Sex Female 4:12 PM CDT Gender Identity Not on file Sexual Orientation Not on file Obstetrics History Last Filed Vital Signs Vital Sign Reading Time Taken Comments Blood Pressure 136/83 03/05/2024 2:54 PM CDT Pulse 80 03/05/2024 2:54 PM CDT Temperature 36.2 C (97.1 F) 11/04/2021 12:10 PM CDT Respiratory Rate - - Oxygen Saturation 98% 03/05/2024 12:37 PM CDT Inhaled Oxygen Concentration - - Weight 81.2 kg (179 lb) 03/05/2024 2:54 PM CDT Height 165.1 cm (5' 5 ) 03/05/2024 2:54 PM CDT Body Mass Index 29.79 03/05/2024 2:54 PM CDT Plan of Treatment Health Maintenance Due Date Last Done Comments Breast Cancer Screening-Mammogram 1956 Colon Cancer Screening-Colonoscopy 1955 Depression Screening 1956 Fall Risk Assessment 1955 Hepatitis C Screening 1956 Osteoporosis Screening-Bone Density Scan 1956 DTaP/Tdap/Td Vaccine (1 - Tdap) 08/03/1967 Hepatitis B Screening 1974 Pneumococcal vaccine 65+ (1 of 2 - PCV) 08/03/1975 Zoster Vaccine (1 of 2) 2006 Well Visit 65+ 2021 Covid-19 Vaccine (2 - season) 01/27/202407/2020 Influenza Vaccine (Season Ended) 2025 Insurance [employer] [facility] [employer] Care Teams Layout Technician Relationship Specialty Start Date End Date Alisa Munoz DO PCP - General Family Medicine 08/13/20 Marie Marcum MD [address] [address] Consulting Physician Vascular Surgery 09/08/20
--- OUTSIDE RECORDS SUMMARY | 2024-09-19 09:21 | XMS_ITS | Referral Summary ---
Author Organization [facility] [address] Address [address] [place] [address] Care Team Providers Care Mirror Maker Name Role Phone CrowmelchorAlisa ewing Primary Care Provider [phone] Marie Marcum MD Unavailable [phone] Allergies No known active allergies Medications aspirin [...] 09/03/2020 Assessment & Plan (05/11/2021 12:21 PM LUNCHROOM ATTENDANT): Left carotid artery is occluded. Assessment & [...] again. Assessment & Plan (05/11/2021 12:21 PM LUNCHROOM ATTENDANT): She had quit smoking previously but since [...] duplex. Assessment & Plan (05/11/2021 12:21 PM LUNCHROOM ATTENDANT): Patient has done well since her right-sided [...] the stent, risk of stroke, risk of [place], risk of anesthesia and possible . She [...] stenosis in the right internal. Echo at [facility] was unremarkable. No intracardiac shunt. No atrial fibrillation on the event monitor. No need for anticoagulation. Status post right carotid endarterectomy. Plavix. Aspirin. Atorvastatin. Assessment & Plan (09/01/2020 3:56 PM CDT): Right parietal infarct. Total occlusion of the left internal. High-grade stenosis in the right internal. The echo Doppler at [facility] showed normal ejection fraction, no significant valvular [...] AM CDT): Followed by her PCP and hand tube bender. I recommend she continue her hydrochlorothiazide, lisinopril and metoprolol. Assessment & Plan (05/11/2021 12:20 PM LUNCHROOM ATTENDANT): Chronic and stable. She is followed by her PCP and hand tube bender and controlled on her hydrochlorothiazide and Lopressor. [...] AM CDT): Followed by her PCP and hand tube bender possibly will need medication changes based on [...] statin. Assessment & Plan (05/11/2021 12:19 PM LUNCHROOM ATTENDANT): Followed by her PCP and controlled on [...] SARS-CoV-2 Monovalent Vaccination (12+ Yrs) PURPLE 09/27/2020 Social History Tobacco Use Types Packs/Day Years [...] on file Sexual Orientation Not on file Last Filed Vital Signs Vital Sign Reading [...] 03/05/2024 2:54 PM CDT Plan of Treatment Not on file Insurance [facility] Address: [facility] [address] [place] [address] Care Teams Mirror Maker Relationship Specialty Start Date End Date Alisa Munoz DO PCP - General Family Medicine 08/13/20 Marie Marcum MD [address] [place] [address] [place] [id number] Consulting Physician Vascular Surgery 09/08/20
[2024-09-19 10:14] LABS: Alanine Aminotransferase 30 U/L (6-35); Albumin Level 4.6 g/dL (3.5-5.1); Alkaline Phosphatase 81 U/L (38-126); Anion Gap 11 mmol/L (4-12); Aspartate Amino Transferase 33 U/L (14-36); Bilirubin,Total 0.4 mg/dL (0.2-1.3); Blood Urea Nitrogen 11 mg/dL (7-17); Calcium 9.6 mg/dL (8.4-10.2); Carbon Dioxide 23 mmol/L (22-30); Chloride 105 mmol/L (98-107); Cholesterol 143 mg/dL (0-200); Estimated Glomerular Filt Rate > 60; Glucose 104 mg/dL (65-110); HDL Direct 53 mg/dL; Potassium 3.6 mmol/L (3.4-5.0); Sodium 139 mmol/L (137-145); Triglycerides 108 mg/dL (<150)
[2024-09-19 10:24] LABS: LDL Cholesterol Direct 55 mg/dL
[2024-09-19 10:30] LABS: Add Urine Microscopic? YES; Appearance Urine Clear (Clear); Bacteria Urine None Seen /hpf; Bilirubin Urine Negative (Negative); Blood Urine Negative (Negative); Color Urine Yellow (Yellow); Glucose Urine UA Negative (Negative); Ketones Urine Negative (Negative); Leukocyte Esterase Ur Trace LEU/UL (Negative); Need Manual Microscopic Reviewed; Nitrate Urine Negative (Negative); Non Pathogenic Casts 0-2; Protein Urine Negative (Negative); RBC Urine 0-2 /hpf (0-2); Specific Grav Ur 1.009 (1.001-1.035); Squamous Epithelial Cell Urine None Seen /hpf (Few); Urobilinogen Urine 0.2 mg/dL (<2.0); WBC Urine 0-5 /hpf (0-3); pH Urine 6.5 (5.0-9.0)
[2024-09-19 11:02] LABS: Hepatitis C Virus Antibody Negative (Negative)
== END 2024-09-19 09:12 | disposition home or self-care (01) ==
PROVIDERS: PCP Family Medicine; Visit Provider Nurse Practitioner
DX: E78.5 Hyperlipidemia, unspecified (principal); E55.9 Vitamin D deficiency, unspecified; Z11.59 Encounter for screening for other viral diseases
CPT/HCPCS: 36415; 80053; 80061; 81001; 82306; 86803

== ENCOUNTER 2025-03-12 13:11 | Outpatient (CLI) | payer OTHER, SELFPAY ==
[2025-03-12 14:31] LABS: Hematocrit 37.9 % (37.0-47.0); Hemoglobin 11.2 g/dL (12.0-15.0); Immature Granulocyte Percent A 0.2 % (0-0.5); Lymphocytes Absolute Auto 3.31 K/mm3 (0.9-3.2); Mean Corpuscular HGB Conc 29.6 g/dl (32-36); Mean Corpuscular Hemoglobin 22.3 pg (26-34); Mean Corpuscular Volume 75.5 fl (80-100); Nucleated Red Blood Cells Absolute Auto 0.000 K/mm3 (0.0-0.012); Nucleated Red Blood Cells Perc 0.0 % (0.0-0.2); Platelet Count Result 395 k/mm3 (150-375); Red Blood Count 5.02 M/mm3 (4.2-5.4); White Blood Count 8.2 K/mm3 (4.5-10.0)
[2025-03-12 14:49] LABS: Anion Gap 11 mmol/L (4-12); Blood Urea Nitrogen 7 mg/dL (7-17); Calcium 9.2 mg/dL (8.4-10.2); Carbon Dioxide 23 mmol/L (22-30); Chloride 102 mmol/L (98-107); Estimated Glomerular Filt Rate > 60; Glucose 97 mg/dL (65-110); Potassium 3.4 mmol/L (3.4-5.0); Sodium 136 mmol/L (137-145)
[2025-03-12 16:26] LABS: Hypochromasia 1+; Ovalocytes Occasional; Schistocytes None Seen
[2025-03-12 19:50] LABS: Hemoglobin A1C 5.2 % (<5.7)
[2025-03-12 23:09] LABS: Cholesterol 127 mg/dL (0-200); HDL Direct 50 mg/dL; Triglycerides 82 mg/dL (<150)
[2025-03-12 23:41] LABS: Thyroid Stimulating Hormone 1.240 uIU/mL (0.465-4.680)
== END 2025-03-12 13:12 | disposition home or self-care (01) ==
PROVIDERS: PCP Nurse Practitioner; Visit Provider Nurse Practitioner
DX: E78.5 Hyperlipidemia, unspecified (principal); E55.9 Vitamin D deficiency, unspecified; R73.01 Impaired fasting glucose; E03.9 Hypothyroidism, unspecified; I10 Essential (primary) hypertension; Z86.73 Personal history of transient ischemic attack (TIA), and cerebral infarction without residual deficits
CPT/HCPCS: 36415; 80048; 80061; 82306; 83036; 84443; 85025